=== PATIENT | female | born 1975 | race Two or more races ===

== ENCOUNTER → 2025-02-16 | Outpatient (CLI) | payer MEDICAID, SELFPAY ==
--- NOTE | 2025-02-16 13:21 | XR_ITS ---
Examination: Shoulder,right, 3 views Technique: Shoulder AP internal rotation, AP external rotation, Y view shoulder, 3 views Exam date and time :February 16, 2025, 1334 hours, comparison November 22, 2024 INDICATIONS: Patient fell 3 months ago with fractures humeral head FINDINGS: Stable alignment fractures humeral head with early healing No shoulder dislocation IMPRESSION: Early healing with stable alignment fractures humeral head compared with November 22, 2024
== END | disposition home or self-care (01) ==
LOC: CDIM 12:37
PROVIDERS: PCP Family Medicine; Referring Provider Orthopaedic Surgery; Visit Provider Orthopaedic Surgery
DX: S42.254D Nondisplaced fracture of greater tuberosity of right humerus, subsequent encounter for fracture with routine healing (principal); W19.XXXD Unspecified fall, subsequent encounter
CPT/HCPCS: 73030

== ENCOUNTER 2025-03-23 23:14 | Emergency (ER) | payer MEDICAID, SELFPAY ==
[2025-03-23 23:33] VITALS: BP 162/90; PULSE 97; RESP 18; TEMP 36.7; O2SAT 95; BMI 37.0
--- NOTE | 2025-03-23 23:51 | PD.EDFMALE ---
ED Female Urogenital RME/HPI General Chief complaint: Urogenital-Female Stated complaint: BLOOD IN URINE AND BURNING, LEFT LEG SWELLING Time Seen by Provider: 03/23/25 23:37 Source: patient, RN notes reviewed and old records reviewed Arrival date/time: 03/23/25 23:14 Mode of arrival: ambulatory Limitations: no limitations RME / HPI RME / HPI Narrative: 50yof presents to ED for bilateral flank pain intermittent the past 2 weeks. Patient c/o dysuria, hematuria with wiping and urinary frequency. Patient was prescribed 5-day course of antibiotic by PCP last week which she completed 5 days ago. No fever, vomiting or abdominal pain reported. Ibuprofen taken at 2030 with mild relief. Related Data Home Medications ?Medication ?Instructions ?Recorded ?Confirmed metformin 1,000 mg tablet 1,000 mg PO BID DIABETES #0 tabs 12/07/13 09/28/24 (Glucophage) loratadine 10 mg tablet (Claritin) 10 mg PO QDAY PRN Allergy Symptoms 08/17/14 09/28/24 #0 tabs insulin glargine 100 unit/mL 30 unit subcut QAM 05/11/21 09/28/24 subcutaneous solution (Lantus U-100 Insulin) atorvastatin 40 mg tablet 40 mg PO QDAY 09/10/24 09/25/24 loratadine 10 mg tablet 10 mg PO QDAY PRN allergy symptoms 09/10/24 09/23/24 omeprazole 20 mg capsule,delayed 20 mg PO QDAY 09/10/24 09/25/24 release metoprolol tartrate 25 mg tablet 25 mg PO Q12H 09/23/24 09/25/24 empagliflozin 25 mg tablet 25 mg PO QAM 09/25/24 09/28/24 (Jardiance) Previous Rx's ?Medication ?Instructions ?Recorded losartan 100 mg tablet 100 mg PO QDAY #30 tabs 09/11/24 ciprofloxacin HCl 500 mg tablet 500 mg PO BID #14 tabs 09/29/24 (Cipro) hydrocodone 5 mg-acetaminophen 325 1 tab PO Q6H PRN pain #20 tabs 09/29/24 mg tablet hydrocodone 5 mg-acetaminophen 325 1 tab PO Q8H PRN pain #14 tabs 11/22/24 mg tablet acetaminophen 500 mg tablet 1,000 mg (2 x 500 mg) PO Q6H PRN 03/24/25 (Tylenol Extra Strength) pain #30 tabs Allergies Allergy/AdvReac Type Severity Reaction Status Date / Time aspirin Allergy Intermediate Swelling Verified 03/23/25 23:16 of Lip/Tongue/Throat Review of Systems Review of Systems Systems Reviewed: All systems reviewed, normal except as documented Constitutional Constitutional: Denies chills and Denies fever(s) Gastrointestinal Gastrointestinal: Denies abdominal pain, Reports nausea and Denies vomiting Genitourinary Genitourinary: Reports dysuria, Reports flank pain and Reports hematuria ED Exam General Limitations: Present no limitations General appearance: Present alert, in no apparent distress and obese Head Head exam: Present atraumatic and normocephalic Eye Eye exam: Present normal appearance, PERRL and EOMI ENT ENT exam: Present normal exam and mucous membranes moist Neck Neck exam: Present normal inspection and full ROM Chest Chest inspection: Present normal inspection and symmetric chest wall rise Respiratory Respiratory exam: Present normal lung sounds bilaterally; Absent respiratory distress Cardiovascular Cardiovascular exam: Present regular rate and normal rhythm Abdominal Exam Abdominal exam: Present soft; Absent distention, tenderness, guarding or rebound Extremities Exam Extremities exam: Present normal inspection and full ROM; Absent pedal edema or joint swelling Back Exam Back exam: Absent CVA tenderness (R) or CVA tenderness (L) Neurological Exam Neurological exam: Present alert and oriented X3 Psychiatric Psychiatric exam: Present normal affect and normal mood Skin Skin exam: Present warm, dry, intact and normal color Course Quality Measures none Orders Category Date Time Status CT abdomen pelvis wo con Stat Exams 03/23/25 23:52 Completed CBC Stat Lab 03/23/25 23:56 Completed CMP [Comprehensive Metabolic Panel] Stat Lab 03/23/25 23:56 Completed Lipase Stat Lab 03/23/25 23:56 Completed UA [Urinalysis] Stat Lab 03/24/25 00:17 Completed Urine Culture Stat Lab 03/24/25 00:17 Received HYDROcodone*/APAP 5/325 [Yulan 5/325] Med 03/23/25 23:52 Discontinued 1 tab PO X1 ONE Vital Signs Vital signs: Vital Signs Temperature 98.1 F 03/23/25 23:33 Pulse Rate 97 03/23/25 23:33 Respiratory Rate 18 03/23/25 23:33 Blood Pressure 162/90 H 03/23/25 23:33 Pulse Oximetry (%) 95 03/23/25 23:33 Oxygen Delivery Method Room Air 03/23/25 23:33 Urogenital - Female MDM Narrative MDM Narrative:: 50yof presents to ED for bilateral flank pain intermittent the past 2 weeks. Patient c/o dysuria, hematuria with wiping and urinary frequency. Patient was prescribed 5-day course of antibiotic by PCP last week which she completed 5 days ago. No fever, vomiting or abdominal pain reported. Ibuprofen taken at 2030 with mild relief. Patient updated on labs and imaging. No evidence of UTI on UA, urine culture sent and pending. Encouraged close follow-up with her established urologist if symptoms persist or worsen. Patient comfortable with plan of care. Stable for discharge, RTED precautions given. Patient data External records reviewed:: [facility] previous records (11/22/2024 ED visit for broken humerus) Clinical information provided by:: patient Social determinants that could affect healthcare access:: other (specify) (Poor access to healthcare, unemployed) Patient has the following chronic illnesses:: Kidney stones, chronic renal scarring How is presenting disease/condition affected by chronic disease/condition?: exacerbated by Evaluation data The following diagnostics were reviewed and interpreted by me:: lab results and radiology exam(s) Lab and/or radiology exams considered but not ordered:: None Interpretation Summary: Mild leukocytosis, WBC 14 Hyperglycemia UA +leuks/squamous cells c/w contaminant. Mild blood CT abd/pelvis: IMPRESSION: Right-sided pelvocaliectasis with suggestion of mild urothelial thickening and adjacent fat stranding in the region of the UPJ of uncertain etiology, potentially acute on chronic inflammation and/or scarring. No obstructing urinary tract calculi detected on either side. Hepatomegaly with diffusely hyperdense liver parenchyma suggestive of hemachromatosis. Please correlate with serum transferrin saturation (TSAT) and serum ferritin. Moderate colonic fecal load. Dictated By: Taqueria Dai DO Signed By: <Electronically signed by Taqueria Dai DO in [place]> Medications / Prescriptions Medications or Prescriptions considered but not ordered:: No antibiotics recommended at this time Medication administrations:: Medication Administration History Discontinued Medications Hydrocodone Bitart/Acetaminophen (Hydrocodone/Apap 5/325 Tablet) 1 tab PO X1 ONE Stop: 03/23/25 23:53 Last Admin: 03/24/25 00:25 Dose: 1 tab Documented By: MC Above medication administered in ED Consultations Consultation(s) initiated? (list below): No Diagnosis Urogenital Female Differential Diagnosis: urinary tract infection, cystitis and other (Kidney stone, renal colic, pyelonephritis) Most likely diagnosis given after review of the tests above:: Flank pain Admission Indicated Admission indicated?: not indicated Admission Request Was there a request for admission?: No Disposition Plan Disposition Plan: Discharge Discharge Attestation Discharge Attestation: The patient and all family members were given an opportunity to ask questions and understood the discharge instructions. Discharge instructions specifically effects, indications for sooner follow up or return to the emergency department, and the expected course of current diagnosis. Patient condition: Stable Discharge Plan Plan Patient Disposition: HOME (Self Care) Patient condition on transfer: Stable Prescriptions/Referrals Prescriptions/Med Rec: New acetaminophen [Tylenol Extra Strength] 500 mg tablet 1,000 mg PO Q6H PRN (Reason: pain) Qty: 30 0RF No Action metformin [Glucophage] 1,000 MG tablet 1,000 mg PO BID Qty: 0 loratadine [Claritin] 10 MG tablet 10 mg PO QDAY PRN (Reason: Allergy Symptoms) Qty: 0 insulin glargine [Lantus U-100 Insulin] 100 unit/mL solution 30 unit SUBCUT QAM metoprolol tartrate 25 mg tablet 25 mg PO Q12H Patient Comments: TAKE 1 TABLET BY MOUTH TWICE DAILY WITH FOOD hydrocodone-acetaminophen 5-325 mg tablet 1 tab PO Q6H MDD 4 PRN (Reason: pain) Qty: 20 0RF ciprofloxacin HCl [Cipro] 500 mg tablet 500 mg PO BID Qty: 14 0RF atorvastatin 40 mg tablet 40 mg PO QDAY Patient Comments: TAKE 1 TABLET BY MOUTH ONCE DAILY omeprazole 20 mg capsule,delayed release(DR/EC) 20 mg PO QDAY Patient Comments: TAKE 1 CAPSULE BY MOUTH ONCE DAILY 30 MINUTES BEFORE MORNING MEAL loratadine 10 mg tablet 10 mg PO QDAY PRN (Reason: allergy symptoms) Patient Comments: TAKE 1 TABLET BY MOUTH ONCE DAILY NEEDED FOR ALLERGIES losartan 100 mg tablet 100 mg PO QDAY Qty: 30 2RF Jardiance 25 mg tablet 25 mg PO QAM hydrocodone-acetaminophen 5-325 mg tablet 1 tab PO Q8H MDD 3 PRN (Reason: pain) Qty: 14 0RF Referrals: Kevin Cid MD [Physician, Urology] Referral Note: Call to schedule an appointment for follow-up Melquiades Taylor PA-C [Primary Care Provider] - In 1 week Problem List Clinical Impression: Bilateral flank pain, Hydronephrosis of right kidney, Hyperglycemia Patient/Caregiver Discharge Instructions Education Materials: ED Flank Pain, Uncertain Cause Print Language: Mohawk Stand Alone Forms: Colleen Award Info., Patient Portal Info Letter PA/ASTRONOMY DEPARTMENT CHAIR Supervising Physician PA/ASTRONOMY DEPARTMENT CHAIR Supervising Physician: Evan
--- NOTE | 2025-03-23 23:52 | XR_ITS ---
Examination: CT abdomen and pelvis without contrast. Coronal 3-D reconstructions. Sagittal 2-D reconstructions. Date and time of exam: 03/24/2025, 12:52 a.m. INDICATION: Bilateral flank pain, dysuria and hematuria. Persistent pain after 1 week of antibiotic therapy for UTI. COMPARISON: CT abdomen/pelvis 10/20/2024 CTDI: vol (mGy): 16.5 DLP: (mGycm): 935 Technique: Axial images of the abdomen have been obtained, 3 mm slice thickness Intravenous contrast material has not been administered. Low dose protocols were performed. One or more of the following dose reduction techniques were used; automated exposure control, adjustment of the mA and/or KV according to patient size, use of iterative reconstruction technique. Findings: Lack of intravenous contrast limits evaluation of solid organs, vasculature, and lymph nodes. Lower thorax: Redemonstration of opacification in the inferior lingular segment that could represent a combination of postinflammatory scarring and adjacent subsegmental atelectasis that has developed in the interim. No pleural effusions. No cardiomegaly or pericardial effusion. Possible very small sliding-type lateral hernia. Liver: The liver measures 22 cm in craniocaudal dimension and demonstrates increased density throughout, with tonsils measuring up to 73 in the lateral segment left hepatic lobe. Biliary system: The gallbladder is partially decompressed at time of imaging. No calcified gallstones or findings concerning for acute cholecystitis or biliary ductal obstruction. Spleen: Within normal limits of size. No discrete mass. Pancreas: No contour deforming mass or overt main pancreatic duct dilatation. No evidence for acute inflammation. Adrenal glands: Stable indeterminate 1.4 cm left adrenal nodule which most likely represents a lipid poor adenoma. Unremarkable right adrenal gland. Kidneys: Redemonstration of diffuse lobulated morphology of the right kidney likely due to multifocal parenchymal scarring. Redemonstration of calcifications at the inferior pole of the right kidney that could represent an aggregate of irregular calculi within adjacent minor calyces of potentially calcified parenchymal lesion. The aggregate of calcifications measures approximately 1.3 x 1.1 cm in transaxial dimensions (axial image 99), stable compared to prior exam. Redemonstration of mild right-sided pelvocaliectasis and mild thickening around the region of the UPJ with slight fat stranding in the region, not significant changed in the interim. There is no evidence for an obstructing calculus in this region or elsewhere. Mild right ureteral dilatation in the lower abdomen could represent transient peristalsis. No evidence for calculus at the UVJ. The left kidney is stable in appearance, without evidence for calculi, hydronephrosis or contour deforming mass. Redemonstration of multiple foci of vascular calcification in the bilateral renal sinuses, greater on the right. Bladder: No calculi or discrete mass. Pelvic organs: Uterus is anteverted and deviated toward the left side. Multiple nabothian cysts are identified. Slightly cagle appearance of the left ovary could be due to small follicles or dominant cyst measuring approximate 2.2 cm. Unremarkable right ovary. Bowel/Peritoneal cavity: Limited assessment without IV and oral contrast as well as segments of underdistention. No contour deforming mass. No obstructive or acute inflammatory changes. No evidence for appendicitis. Moderate fecal burden is present throughout the colon at time of imaging. No ascites or free air. No concerning peritoneal thickening. Lymph nodes/retroperitoneum: No pathologically enlarged lymph nodes or other masses. No hematoma or other abnormal collections. Vessels: Scattered calcific plaque in the abdomen/pelvis. Normal caliber abdominal aorta identified. Abdominal/Pelvic wall: Very small deep fat-containing umbilical hernia noted. The skin at the umbilicus exhibits thickening, greater on the right side, and appearing mildly more pronounced in the interim with very small underlying nodularity now seen. No drainable fluid collection in the region. Small fat-containing left canal of Nuck hernia without complication. Musculoskeletal: Multifocal degenerative changes with otherwise no evidence for recent fracture or aggressive lesion. IMPRESSION: Right-sided pelvocaliectasis with suggestion of mild urothelial thickening and adjacent fat stranding in the region of the UPJ of uncertain etiology, potentially acute on chronic inflammation and/or scarring. No obstructing urinary tract calculi detected on either side. Hepatomegaly with diffusely hyperdense liver parenchyma suggestive of hemachromatosis. Please correlate with serum transferrin saturation (TSAT) and serum ferritin. Moderate colonic fecal load.
[2025-03-24 00:14] LABS: Basophils # (Auto) 0.1 Thou/mm3 (0.0-0.2); Basophils % (Auto) 1 % (0-2.5); Eosinophils # (Auto) 0.2 Thou/mm3 (0.0-0.5); Eosinophils % (Auto) 2 % (0-10); Hematocrit 34.2 % (36.0-46.0); Hemoglobin 11.0 g/dL (12.0-16.0); Immature Granulocytes Auto 0.05 Thou/mm3 (0.00-0.00); Lymphocytes # (Auto) 1.8 Thou/mm3 (1.0-4.8); Lymphocytes % (Auto) 13 % (10-50); Mean Corpuscular HGB Conc 32.2 g/dl (31.0-37.0); Mean Corpuscular Hemoglobin 26.6 pg (25.0-35.0); Mean Corpuscular Volume 83 fL (80-100); Monocytes # (Auto) 0.9 Thou/mm3 (0.0-0.8); Monocytes % (Auto) 7 % (0-12); Neutrophils # (Auto) 11.0 Thou/mm3 (1.8-7.7); Neutrophils % (Auto) 78 % (37-80); Nucleated Red Blood Cell # 0.00 Thou/mm3 (0.00-0.00); Nucleated Red Blood Cell % 0 /100 WBC (0); Platelet Count 370 Thou/mm3 (140-440); RDW Standard Deviation 38.8 fL (36.4-46.3); Red Blood Count 4.14 Miln/mm3 (4.00-5.20); White Blood Count 14.1 Thou/mm3 (3.6-11.0)
[2025-03-24 00:24] LABS: Collection Type, Urine Clean Catch
[2025-03-24] MEDS: HYDROcodone/APAP 5/325 TABLET 1 TAB PO (00:25)
[2025-03-24 00:29] LABS: Bilirubin,Urine Negative (Negative); Blood,Urine 2+ (Negative); Clarity,Urine Clear (Clear/Hazy); Color,Urine Colorless (Lt Yel-Yel); Glucose, Urine 4+ (Negative); Ketones,Urine Negative (Negative); Leukocyte Esterase,Urine Positive (Negative); Nitrite,Urine Negative (Negative); PH,Urine 6.0 (5.0-7.0); Protein,Urine 1+ (Neg - Trace); RBC,Urine 10 /hpf (0-3); Specific Gravity,Urine 1.026 (1.001-1.035); Squamous Epithelial Cell,Urine 7 /hpf (0-5); Urobilinogen,Urine Negative mg/dL (0.0-1.0); WBC,Urine 2 /hpf (0-5)
[2025-03-24 00:30] LABS: Alanine Aminotransferase 14 U/L (10-49); Albumin, Serum 4.4 gm/dL (3.5-5.0); Albumin/Globulin Ratio 1.4 (1.2-2.2); Alkaline Phosphatase 162 U/L (46-116); Anion Gap 9 (7-16); Aspartate Amino Transferase 15 U/L (0-34); BUN/Creatinine Ratio 19 Ratio (12-20); Bilirubin,Total 0.2 mg/dL (0.3-1.2); Blood Urea Nitrogen 21 mg/dL (9-23); Calcium 9.7 mg/dL (8.3-10.6); Calcium (Corrected) 9.7 mg/dL (8.5-10.1); Carbon Dioxide 25.3 mMol/L (20.0-31.0); Chloride 100 mMol/L (98-107); Creatinine (Component) 1.1 mg/dL (0.6-1.3); Estimated Creatinine Clearance 67.0 mL/min (>60); Globulin 3.1 gm/dL (2.3-3.5); Glucose 338 mg/dL (74-106); Lipase 79 U/L (12-53); Osmolality,Calculated 284 (275-295); Potassium 4.2 mMol/L (3.4-5.1); Sodium 134 mMol/L (136-145); Total Protein 7.5 gm/dL (5.7-8.2); eGFR > 60 See Note
--- NOTE | 2025-03-24 02:17 | PRELIM_ITS ---
CT scan of the abdomen and pelvis without intravenous contrast (axial sections with sagittal and coronal reformats) March 24, 2025 0051 hours Clinical History: Bilateral flank pain, dysuria, hematuria. Comparison: No prior study is available for comparison. Findings: The lung bases are clear. The gallbladder, pancreas, spleen and adrenals are unremarkable on this noncontrast study. Nonobstructing right kidney stones. Mild right hydroureteronephrosis with transition point at UVJ. No evidence of ureteral stones. Right renal cortical scarring. Hepatomegaly. Mild irregular liver margins. Fecal loading. No evidence of bowel obstruction. No evidence of appendicitis. There is no mesenteric or retroperitoneal adenopathy. The urinary bladder is nondistended, limited evaluation. There is no free fluid or free air. Degenerative changes of the imaged portions of the spine. Chronic multilevel disc disease. No acute fractures. Vascular calcifications. Heterogenous uterine cervix. Small hiatus hernia. Impression: 1. Hepatomegaly and probable cirrhosis. 2. Fecal loading. 3. Mild right hydroureteronephrosis with transition point at UVJ without evidence of ureteral stones; consider UVJ cancer in the differential diagnosis. 4. Heterogenous uterine cervix, further evaluation to assess for cervical cancer is recommended. 5. Right renal cortical scarring. 6. Nonobstructing right nephrolithiasis. 7. Small hiatus hernia. Report Electronically Signed By: Femi Bae 03/24/2025 2:16:48 AM [EST]
[2025-03-24 03:22] VITALS: BP 117/77; PULSE 79; RESP 17; TEMP 36.6; O2SAT 98
== END 2025-03-24 03:23 | disposition home or self-care (01) ==
PROVIDERS: Physician Assistant; Emergency Provider Emergency Medicine
DX: N13.30 Unspecified hydronephrosis (principal); D72.829 Elevated white blood cell count, unspecified
CPT/HCPCS: 36415; 74176; 80053; 81001; 83690; 85025; 87077; 87086; 87186; 99283; A9270